=== PATIENT | female | born 1995 | race Caucasian/White ===

== ENCOUNTER 2016-08-24 20:24 | Inpatient (IN) | payer BC, OTHER ==
[~2016-08-24] VITALS: Ht 162.6 cm; Wt 84.4 kg
[~2016-08-24 20:24] MED LIST: BSP/10 PO; CGN5 PO; CHLO1TAB19 PO; CHLO1TAB38 PO; CLON0.5T3 PO; DROS1TAB21 PO; GLC/500 PO; LISD70CA PO; LMC25 PO
[2016-08-24] MEDS ORDERED: VNTHFA/IN INH (21:19)
[2016-08-24 21:20] LABS: URINE APPEARANCE CLEAR (CLEAR); URINE BILIRUBIN NEG (NEG); URINE COLOR YELLOW; URINE NITRITE NEG (NEG); URINE PH 6.5 (4.5-7.5); URINE SPECIFIC GRAVITY 1.012 (1.000-1.030); UROBILINOGEN NEG (NEG); ZZUR CULT IF INDIC CLEAN CATCH NO
[2016-08-24 21:25] LABS: MANUAL MICROSCOPIC REQUIRED? NO; REVIEW REQ? NO
[2016-08-24 21:42] LABS: BENZODIAZEPINE, URINE NEG (NEG); COCAINE,URINE NEG (NEG); PHENCYCLIDINE, URINE NEG (NEG)
[2016-08-24 22:15] LABS: BASO % 0.3 %; BASO ABS # 0.02 K/uL (0-0.2); COMPLETE YES; EOS % 5.4 %; HEMATOCRIT 40.8 % (37-47); IG% 0.1 %; LYMPH % 34.6 %; LYMPH ABS # 2.32 K/uL (1.2-3.4); MEAN CELL VOLUME 80.3 fL (80-100); MEAN CORPUSCULAR HEMOGLOBIN 26.4 pg (25-34); MEAN CORPUSCULAR HGB CONC 32.8 g/dl (32-36); MEAN PLATELET VOLUME 8.9 fL (7.4-10.4); MONO % 7.8 %; NEUT % 51.8 %; PLATELET COUNT 315 K/uL (130-400); RED BLOOD COUNT 5.08 M/uL (4.2-5.4)
--- NOTE | 2016-08-24 22:36 | EMERGENCY ROOM VISIT NOTE ---
History Report prepared by Vane: Carina Jackman Under the Supervision of: Dr. Radhames Church M.D. First contact with patient: 21:03 Chief Complaint: MENTAL HEALTH EVALUATION Stated Complaint: MENTAL HEALTH EVAL History of Present Illness The patient is a 21 year old female who presents to the Emergency Room for a mental health evaluation. The patient has a mental health history. Her diagnoses include possible bipolar, Asperger's, ADHD, and depression. The majority of the history is obtained from the patient's mother and older sister. They state that the patient thinks she is possessed and was asking her mother to call a soup person earlier [place]. She states that she is sensitive to paranormal energy and thinks that she has telekinesis. She thinks that [place] watches over her. His spirit tells her that he did not of an overdose, but that he was murdered and he wants her to find out who killed him. The patient states that black shadows attack her when she is sleeping and try to rape her, but [place] protects her and prevents anything from happening. She is barely sleeping and estimates that she gets less than 2 hours of sleep each night. Her mother states that this morning the patient kept asking her about and wanted to know what it felt like. Over the weekend she packed up a bunch of things into a box and said that it couldn't be in the house and it needed to be outside because it was too dangerous to stay in the house. Tonight the patient was screaming and yelling about spirits following her. She was scaring her younger brother and her mother is afraid to take her home because she thinks that "something would happen" and the patient would try and harm herself. The patient has had manic episodes like this in the past and went to [facility] at that time. She is not currently taking her medications. The patient states, "People are making me believe things. They are feeding me these things and they're making me freak out...I have a lot on my mind...I'm very manic right now. I'm aware that I need help." She denies any recent fevers but notes a slight cough. Source of History: patient, parent (mother), family (older sister) Onset: CONVERSION MAN Position: other (mental health) Quality: other (manic) Timing: worsening Modifying Factors (Worsening): other (medication noncompliance) Associated Symptoms: + cough, No fevers Review of Systems See HPI for pertinent positives & negatives. A total of 10 systems reviewed and were otherwise negative. Past Medical & Surgical Medical Problems: (1) ADHD (attention deficit hyperactivity disorder) (2) Asperger's disorder (3) Asthma (4) Constipation (5) Depression (6) History of acute bronchitis (7) ODD (oppositional defiant disorder) (8) URI (upper respiratory infection) Family History Cancer FHx: diabetes mellitus Heart disease Hypertension Kidney disease Kidney stones Seizures Social History Smoking Status: Never Smoker Alcohol Use: none Drug Use: none Marital Status: single Housing Status: lives with family Occupation Status: student Current/Historical Medications Scheduled Benztropine Mesylate (Benztropine Mesylate), 0.5 MG PO BID Buspirone HCl (Buspirone HCl), 20 MG PO BID Chlorpromazine Hcl (Thorazine), 25 MG PO QPM Chlorpromazine Hcl (Thorazine), 10 MG PO QAM Clonazepam (Klonopin), 0.5 MG PO BID Drospirenone-Ethinyl Estradiol (Gianvi), 1 TAB PO HS Lamotrigine (Lamotrigine), 50 MG PO BID Lisdexamfetamine Dimesylate (Vyvanse), 70 MG PO DAILY Metformin Hcl (Glucophage), 500 MG PO BID Scheduled PRN Albuterol Hfa (Ventolin Hfa), 2 PUFFS INH Q4 PRN for SOB/Wheezing Allergies Coded Allergies: Ibuprofen (Unverified Adverse Reaction, Unknown, CAN'T TAKE WITH VYVANSE, 08/24/16) Physical Exam Vital Signs Date Time Temp Pulse Resp B/P Pulse Ox O2 Delivery O2 Flow Rate FiO2 08/24/16 22:25 87 18 134/93 100 Room Air 08/24/16 20:30 36.9 105 16 143/81 98 Room Air Physical Exam GENERAL: Patient is a healthy-appearing well-nourished 21 year old female. HEAD: Normocephalic atraumatic EYES: Ocular movements intact pupils equal and react to light OROPHARYNX mucous membranes are moist no exudates present no erythema or edema present NECK: Supple no nuchal rigidity CHEST: Good equal expansion LUNGS: Clear and equal to auscultation CARDIAC: Normal S1 and S2 ABDOMEN: Soft nontender no guarding BACK: No CVA tenderness EXTREMITIES: No pain upon palpation normal muscle strength in all groups no clubbing cyanosis or edema NEURO: Patient is following commands is answering questions appropriately. Alert and oriented x3 Cranial Nerves 2-12 grossly intact Medical Decision & Procedures Laboratory Results 08/24/16 21:49 Red Blood Count 5.08, Mean Corpuscular Volume 80.3, Mean Corpuscular Hemoglobin 26.4, Mean Corpuscular Hemoglobin Concent 32.8, Mean Platelet Volume 8.9, Neutrophils (%) (Auto) 51.8, Lymphocytes (%) (Auto) 34.6, Monocytes (%) (Auto) 7.8, Eosinophils (%) (Auto) 5.4, Basophils (%) (Auto) 0.3, Neutrophils # (Auto) 3.47, Lymphocytes # (Auto) 2.32, Monocytes # (Auto) 0.52, Eosinophils # (Auto) 0.36, Basophils # (Auto) 0.02 08/24/16 21:49 Test 08/24/16 20:41 08/24/16 21:49 Urine Color YELLOW Urine Appearance CLEAR (CLEAR) Urine pH 6.5 (4.5-7.5) Urine Specific [place] 1.012 (1.000-1.030) Urine Protein NEG (NEG) Urine Glucose (UA) NEG (NEG) Urine Ketones NEG (NEG) Urine Occult Blood NEG (NEG) Urine Nitrite NEG (NEG) Urine Bilirubin NEG (NEG) Urine Urobilinogen NEG (NEG) Urine Leukocyte Esterase NEG (NEG) Urine Test NEG (NEG) Urine Opiates Screen NEG (NEG) Urine Methadone, Qualitative NEG (NEG) Urine Barbiturates NEG (NEG) Urine Phencyclidine (PCP) Level NEG (NEG) Ur Amphetamine/Methamphetamine POS (NEG) MDMA (Ecstasy) Screen NEG (NEG) Urine Benzodiazepines Screen NEG (NEG) Urine Cocaine Metabolite NEG (NEG) Urine Marijuana (THC) NEG (NEG) White Blood Count 6.70 K/uL (4.8-10.8) Red Blood Count 5.08 M/uL (4.2-5.4) Hemoglobin 13.4 g/dL (12.0-16.0) Hematocrit 40.8 % (37-47) Mean Corpuscular Volume 80.3 fL (80-100) Mean Corpuscular Hemoglobin 26.4 pg (25-34) Mean Corpuscular Hemoglobin Concent 32.8 g/dl (32-36) Platelet Count 315 K/uL (130-400) Mean Platelet Volume 8.9 fL (7.4-10.4) Neutrophils (%) (Auto) 51.8 % Lymphocytes (%) (Auto) 34.6 % Monocytes (%) (Auto) 7.8 % Eosinophils (%) (Auto) 5.4 % Basophils (%) (Auto) 0.3 % Neutrophils # (Auto) 3.47 K/uL (1.4-6.5) Lymphocytes # (Auto) 2.32 K/uL (1.2-3.4) Monocytes # (Auto) 0.52 K/uL (0.11-0.59) Eosinophils # (Auto) 0.36 K/uL (0-0.5) Basophils # (Auto) 0.02 K/uL (0-0.2) RDW Standard Deviation 40.8 fL (36.4-46.3) RDW Coefficient of Variation 13.9 % (11.5-14.5) Immature Granulocyte % (Auto) 0.1 % Immature Granulocyte # (Auto) 0.01 K/uL (0.00-0.02) Anion Gap 9.0 mmol/L (3-11) Est Creatinine Clear Calc Drug Dose 121.0 ml/min Estimated GFR () 126.8 Estimated GFR (Non- 109.4 BUN/Creatinine Ratio 9.6 (10-20) Calcium Level 9.6 mg/dl (8.5-10.1) Total Bilirubin 0.4 mg/dl (0.2-1) Aspartate Amino Transf (AST/SGOT) 25 U/L (15-37) Alanine Aminotransferase (ALT/SGPT) 24 U/L (12-78) Alkaline Phosphatase 85 U/L (45-117) Total Protein 7.6 gm/dl (6.4-8.2) Albumin 3.7 gm/dl (3.4-5.0) Globulin 3.9 gm/dl (2.5-4.0) Albumin/Globulin Ratio 0.9 (0.9-2) Thyroid Stimulating Hormone (TSH) 0.500 uIu/ml (0.300-4.500) Salicylates Level < 1.7 mg/dl (2.8-20) Acetaminophen Level < 2 ug/ml (10-30) Ethyl Alcohol mg/dL < 3.0 mg/dl (0-3) Labs reviewed by ED physician. ED Course 2129: Past medical records reviewed. The patient was evaluated in room A5. A complete history and physical examination was performed. 2314: The patient has been accepted to [facility] for further management. Medical Decision Differential diagnosis: Etiologies such as mood disorder, infection, hypoglycemia, electrolyte abnormalities, cardiac sources, intracerebral event, toxicologic, neurologic, as well as others were entertained. This is a 21-year-old female who presents emergency Department with manic thoughts and actions. The patient has not been taking her medication at home and has been sleeping maybe 2 hours tonight. She has become obsessed with [place]. I my examination of the patient she denies all these facts and feels that she should not be here. She did however willingly signed a 201 for admission to [facility]. I believe she is medically clear. Both patient and family were in agreement with the treatment plan. Impression Primary Impression: Mood disorder Scribe Attestation The scribe's documentation has been prepared under my direction and personally reviewed by me in its entirety. I confirm that the note above accurately reflects all work, treatment, procedures, and medical decision making performed by me. Departure Information Dispostion [facility] Acute Care Referrals Reva Ocasio M.D. (PCP) Patient Instructions My [facility]
[2016-08-24 22:38] LABS: ACETAMINOPHEN < 2 ug/ml (10-30); BUN/CREATININE RATIO 9.6 (10-20); CALCIUM 9.6 mg/dl (8.5-10.1); CREATININE 0.78 mg/dl (0.60-1.20); POTASSIUM 3.7 mmol/L (3.5-5.1)
[2016-08-24 22:48] LABS: ALB/GLOB RATIO 0.9 (0.9-2); THYROID STIMULATING HORMONE 0.5 uIu/ml (0.300-4.500)
[2016-08-24] MEDS ORDERED: NURSING VERBAL MED ORDER ONE (23:15)
[2016-08-24] MEDS ORDERED: MAGNESIUM HYDROXIDE SUSP 30 ML UDC PO PRN (23:30)
[2016-08-24] MEDS ORDERED: SODIUM CHLORIDE 0.65% NA SOLN 45 ML (OCEAN) PRN (23:30)
[2016-08-24] MEDS ORDERED: BISMUTH SUBSALICYLATE PER ML OMNICELL CHARGE PO PRN (23:30)
[2016-08-24] MEDS ORDERED: CHLORPROMAZINE HCL 25 MG TAB PO SCH (23:30)
[2016-08-24] MEDS ORDERED: ALUMINUM/MAGNESIUM SUSP 30 ML UDC PO PRN (23:30)
[2016-08-25 00:01] VITALS: BP 134/93; PULSE 87; TEMP 37.1; Ht 162.6 cm; Wt 84.4 kg
[2016-08-25 00:28] VITALS: O2SAT 99
[2016-08-25] MEDS: hydrOXYzine HCL 25 MG TAB PO PRN ×2 (01:02→23:03)
[2016-08-25 06:48] VITALS: BP_SYST 107; BP_SYST 122; BP_DIAS 71; BP_DIAS 84; PULSE 80; PULSE 87; TEMP 36.5
[2016-08-25] MEDS ORDERED: CHLORPROMAZINE HCL 25 MG TAB PO PRN (13:30)
[2016-08-25] MEDS ORDERED: CHLORPROMAZINE HCL 10 MG TAB PO ONE (14:00)
[2016-08-25] MEDS ORDERED: CLONAZEPAM 0.5 MG TAB PO ONE (14:30)
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
[2016-08-25] MEDS: CHLORPROMAZINE HCL 25 MG TAB PO SCH (21:19)
[2016-08-25] MEDS: METFORMIN HCL 500 MG TAB PO SCH (21:19)
[2016-08-25] MEDS: BENZTROPINE MESYLATE 0.5 MG TAB PO SCH (21:19)
[2016-08-25] MEDS: CLONAZEPAM 0.5 MG TAB PO SCH (21:19)
[2016-08-26 06:45] VITALS: BP_SYST 107; BP_SYST 120; BP_DIAS 75; BP_DIAS 79; PULSE 86; PULSE 90; TEMP 36.8
[2016-08-26] MEDS: ALBUTEROL HFA 8 GM INHALER INH PRN (07:09)
[2016-08-26] MEDS: BENZTROPINE MESYLATE 0.5 MG TAB PO SCH ×2 (08:31→21:03)
[2016-08-26] MEDS: METFORMIN HCL 500 MG TAB PO SCH ×2 (08:32→21:03)
[2016-08-26] MEDS: CHLORPROMAZINE HCL 10 MG TAB PO SCH (08:32)
[2016-08-26] MEDS: CLONAZEPAM 0.5 MG TAB PO SCH ×2 (08:32→21:02)
--- NOTE | 2016-08-26 11:42 | Psychiatric Progress Notes ---
Progress Note Date of Service Aug 26, 2016. Interval History 21 yo female admitted voluntarily on 08/25 with trang and psychosis, believing spirits were trying to rape her and she was protected by Florentin Bess, who wants her to find out who killed him. Chief Complaint "I'm tired!!". Subjective Patient was seen & assessed interval progress reviewed with Treatment Team. The patient has refused to get out of bed for groups today, saying that she is tired. She says that she slept well last night, but can't get up without her Vyvanse. She denies any experiences with spirits, but again believes that they exist only in her home. She is irritable and whining that she cannot get up, and refuses to go to group therapy. She denies SI/HI, denies aud/vis hallucinations. "Now leave me alone!" Review of Systems Constitutional: + fatigue ENT: No dental problems, No hearing loss, No nasal symptoms, No problem reported, No sore throat, No tinnitus, No trouble swallowing, No unusual epistaxis Respiratory: No cough, No dyspnea at rest, No dyspnea on exertion, No hemoptysis, No problem reported, No shortness of breath, No sputum, No wheezing Cardiovascular: No PND, No chest pain, No claudication, No edema, No orthopnea , No palpitations, No problem reported Abdomen: No GI bleeding, No constipation, No diarrhea, No nausea, No pain, No problem reported, No vomiting Musculoskeletal: No calf pain, No joint pain, No muscle pain, No problem reported, No swelling Neurologic: No balance problems, No memory loss, No numbness/tingling, No paralysis, No problem reported, No vertigo, No weakness Psychiatric: + problem reported (irritable) Integumentary: No bleeding, No color change, No itch, No new/changing skin lesions, No problem reported, No rash Sleep Information Total Hours of Sleep: 6.00 Meal Information Percent of Breakfast Consumed: 100 Percent of Lunch Consumed: 100 Percent of Dinner Consumed: 100 Mental Status Exam During interview pt is: uncooperative (refusing to get out of bed) Appearance: disheveled Eye contact is: other (none) Motor behavior is: steady gait & station (not observed today) Speech: other (irritable ) Affect: other (hides her face under blanket) Mood is: irritable Thought process: goal directed Thought content: delusions (that spirits live in her home and attempt to assault her) Suicidal thought are: denied Homicidal thoughts are: denied Hallucinations: denies auditory, denies visual Cognition: memory grossly intact, attention grossly intact, language grossly intact Intelligence estimated to be: average Insight: impaired Judgement: impaired Impression The patient is irritable today and refusing to participate in groups. She is denying overt hallucinations, and will only minimally participate in the interview regarding her delusions. 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 Input from case aide and mother indicates that she has been in deterioration for weeks or months, with poor sleep alternating with sleeping too much. For now will continue current meds but consider increasing thorazine if delusions persist. Continued Inpatient Care Requires inpatient care due to the severity of her condition and inability to manipulate information in a reality based way. Plan (1) Bipolar affective disorder, manic, severe, with psychotic behavior 08/26 - Continue home meds. 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 - Obtain OP records and coordinate aftercare - Family meetings scheduled for today - Reality orientation (2) Cannabis abuse 08/26 - Encourage abstinence (3) ADHD (attention deficit hyperactivity disorder) 08/26 - Will hold Vyvanse at present due to psychosis and trang Discharge / Aftercare Planning Primary Care Physician: Name: Dr Amarjit Brown [facility] Phone Number: [phone] Appointment Notes: as needed Psychiatrist: Name: Dr Cruz at [facility] Phone Number: [phone] Date of Appointment: Sep 08, 2016 Time of Appointment: 11:00 Therapist: Name: shae Bit Tapper: Name: Letty Brumfield at [facility] Phone Number: [phone] Appointment Notes: per weekly schedule Partial or Psych Rehab: Name: [facility] [phone] Visit Code E&M Code: 46957 Risk Factors Assessment : Yes /single/: Yes Higher / Fall in social status: No Access to guns: No Health problems: No Mental Health Diagnoses: Yes Substance use disorders: Yes Previous attempt: No Previous psychiatric stay: Yes Smoker: No Protective Factors Assessment Rastafari beliefs: No : No Responsible for young children: No Employed: No Stable relationships: Yes Supportive family: Yes Data Vital Signs Last 24 Hrs: Date Time Temp Pulse Resp B/P Pulse Ox O2 Delivery O2 Flow Rate FiO2 08/26/16 06:45 36.8 90 16 107/75 86 120/79 Meds Administered Last 24 Hrs: Meds Administered (Past 24Hrs) Medications (Trade) Dose Ordered Sig/Maria Teresa Route Start Time Stop Time Status Last Admin Dose Admin Hydroxyzine HCl (Vistaril Tab) 50 mg HSZ PRN PO 08/24/16 23:30 09/23/16 23:29 08/25/16 23:03 50 MG Chlorpromazine HCl (Thorazine Tab) 25 mg TODAY@2330 PO 08/24/16 23:30 08/24/16 23:59 DC 08/24/16 23:30 25 MG Albuterol (Ventolin Hfa Inhaler) 2 puffs Q4 PRN INH 08/25/16 13:30 09/24/16 13:29 08/26/16 07:09 2 PUFFS Benztropine Mesylate (Cogentin Tab) 0.5 mg BID PO 08/25/16 22:00 09/24/16 21:59 08/26/16 08:31 0.5 MG Chlorpromazine HCl (Thorazine Tab) 10 mg QAM PO 08/26/16 09:00 09/25/16 08:59 08/26/16 08:32 10 MG Chlorpromazine HCl (Thorazine Tab) 25 mg QPM PO 08/25/16 21:00 09/24/16 20:59 08/25/16 21:19 25 MG Clonazepam (Klonopin Tab) 0.5 mg BID PO 08/25/16 22:00 09/24/16 21:59 08/26/16 08:32 0.5 MG Lamotrigine (Lamictal Tab) 50 mg BID PO 08/25/16 22:00 09/24/16 21:59 08/26/16 08:32 50 MG Metformin HCl (Glucophage Tab) 500 mg BID PO 08/25/16 22:00 4/15/17 21:59 08/26/16 08:32 500 MG Chlorpromazine HCl (Thorazine Tab) 10 mg 1400 ONCE PO 08/25/16 14:00 08/25/16 14:01 DC 08/25/16 14:18 10 MG Clonazepam (Klonopin Tab) 0.5 mg 1430 ONCE PO 08/25/16 14:30 08/25/16 14:31 DC 08/25/16 14:18 0.5 MG Lamotrigine (Lamictal Tab) 50 mg 1430 ONCE PO 08/25/16 14:30 08/25/16 14:31 DC 08/25/16 14:30 50 MG Buspirone HCl (Buspar Tab) 20 mg BID PO 08/25/16 22:00 09/24/16 21:59 08/26/16 08:31 20 MG Lab Results Last 24 Hrs: 08/24/16 21:49 Red Blood Count 5.08, Mean Corpuscular Volume 80.3, Mean Corpuscular Hemoglobin 26.4, Mean Corpuscular Hemoglobin Concent 32.8, Mean Platelet Volume 8.9, Neutrophils (%) (Auto) 51.8, Lymphocytes (%) (Auto) 34.6, Monocytes (%) (Auto) 7.8, Eosinophils (%) (Auto) 5.4, Basophils (%) (Auto) 0.3, Neutrophils # (Auto) 3.47, Lymphocytes # (Auto) 2.32, Monocytes # (Auto) 0.52, Eosinophils # (Auto) 0.36, Basophils # (Auto) 0.02 08/24/16 21:49 Test 08/24/16 20:41 08/24/16 21:49 Urine Color YELLOW Urine Appearance CLEAR (CLEAR) Urine pH 6.5 (4.5-7.5) Urine Specific Garita 1.012 (1.000-1.030) Urine Protein NEG (NEG) Urine Glucose (UA) NEG (NEG) Urine Ketones NEG (NEG) Urine Occult Blood NEG (NEG) Urine Nitrite NEG (NEG) Urine Bilirubin NEG (NEG) Urine Urobilinogen NEG (NEG) Urine Leukocyte Esterase NEG (NEG) Urine Test NEG (NEG) Urine Opiates Screen NEG (NEG) Urine Methadone, Qualitative NEG (NEG) Urine Barbiturates NEG (NEG) Urine Phencyclidine (PCP) Level NEG (NEG) Ur Amphetamine/Methamphetamine POS (NEG) MDMA (Ecstasy) Screen NEG (NEG) Urine Benzodiazepines Screen NEG (NEG) Urine Cocaine Metabolite NEG (NEG) Urine Marijuana (THC) NEG (NEG) White Blood Count 6.70 K/uL (4.8-10.8) Red Blood Count 5.08 M/uL (4.2-5.4) Hemoglobin 13.4 g/dL (12.0-16.0) Hematocrit 40.8 % (37-47) Mean Corpuscular Volume 80.3 fL (80-100) Mean Corpuscular Hemoglobin 26.4 pg (25-34) Mean Corpuscular Hemoglobin Concent 32.8 g/dl (32-36) Platelet Count 315 K/uL (130-400) Mean Platelet Volume 8.9 fL (7.4-10.4) Neutrophils (%) (Auto) 51.8 % Lymphocytes (%) (Auto) 34.6 % Monocytes (%) (Auto) 7.8 % Eosinophils (%) (Auto) 5.4 % Basophils (%) (Auto) 0.3 % Neutrophils # (Auto) 3.47 K/uL (1.4-6.5) Lymphocytes # (Auto) 2.32 K/uL (1.2-3.4) Monocytes # (Auto) 0.52 K/uL (0.11-0.59) Eosinophils # (Auto) 0.36 K/uL (0-0.5) Basophils # (Auto) 0.02 K/uL (0-0.2) RDW Standard Deviation 40.8 fL (36.4-46.3) RDW Coefficient of Variation 13.9 % (11.5-14.5) Immature Granulocyte % (Auto) 0.1 % Immature Granulocyte # (Auto) 0.01 K/uL (0.00-0.02) Anion Gap 9.0 mmol/L (3-11) Est Creatinine Clear Calc Drug Dose 121.0 ml/min Estimated GFR () 126.8 Estimated GFR (Non- 109.4 BUN/Creatinine Ratio 9.6 (10-20) Calcium Level 9.6 mg/dl (8.5-10.1) Total Bilirubin 0.4 mg/dl (0.2-1) Aspartate Amino Transf (AST/SGOT) 25 U/L (15-37) Alanine Aminotransferase (ALT/SGPT) 24 U/L (12-78) Alkaline Phosphatase 85 U/L (45-117) Total Protein 7.6 gm/dl (6.4-8.2) Albumin 3.7 gm/dl (3.4-5.0) Globulin 3.9 gm/dl (2.5-4.0) Albumin/Globulin Ratio 0.9 (0.9-2) Thyroid Stimulating Hormone (TSH) 0.500 uIu/ml (0.300-4.500) Salicylates Level < 1.7 mg/dl (2.8-20) Acetaminophen Level < 2 ug/ml (10-30) Ethyl Alcohol mg/dL < 3.0 mg/dl (0-3)
[2016-08-26] MEDS: CHLORPROMAZINE HCL 25 MG TAB PO SCH (21:02)
[2016-08-27 06:57] VITALS: BP_SYST 102; BP_SYST 127; BP_DIAS 70; BP_DIAS 84; PULSE 101; PULSE 76; TEMP 36.8
[2016-08-27] MEDS: ALBUTEROL HFA 8 GM INHALER INH PRN (07:04)
[2016-08-27] MEDS: BENZTROPINE MESYLATE 0.5 MG TAB PO SCH ×2 (08:36→21:20)
[2016-08-27] MEDS: CHLORPROMAZINE HCL 10 MG TAB PO SCH (08:36)
[2016-08-27] MEDS: METFORMIN HCL 500 MG TAB PO SCH ×2 (08:36→21:21)
[2016-08-27] MEDS: CLONAZEPAM 0.5 MG TAB PO SCH ×2 (08:38→21:21)
--- NOTE | 2016-08-27 13:39 | Psychiatric Progress Notes ---
Progress Note Date of Service Aug 27, 2016. Interval History 21 yo female admitted voluntarily on 08/25 with trang and psychosis, believing spirits were trying to rape her and she was protected by Florentin Bess, who wants her to find out who killed him. Chief Complaint "Tired". Subjective Patient was seen & assessed interval progress reviewed with nursing staff. Patient reports feeling tired again today. She attributes this to being off Vyvanse. She is tolerating medications well. Less irritable. Denies any thoughts to harm herself or others. Denies auditory or visual hallucinations. No longer believes that she is possessed with spirits - which she attributes to smoking synthetic marijuana prior to admission. Review of Systems Constitutional: No chills, No fatigue, No fever, No problem reported, No sweats , No weakness, No weight loss ENT: No dental problems, No hearing loss, No nasal symptoms, No problem reported, No sore throat, No tinnitus, No trouble swallowing, No unusual epistaxis Respiratory: No cough, No dyspnea at rest, No dyspnea on exertion, No hemoptysis, No problem reported, No shortness of breath, No sputum, No wheezing Cardiovascular: No PND, No chest pain, No claudication, No edema, No orthopnea , No palpitations, No problem reported Abdomen: No GI bleeding, No constipation, No diarrhea, No nausea, No pain, No problem reported, No vomiting Musculoskeletal: No calf pain, No joint pain, No muscle pain, No problem reported, No swelling Integumentary: No bleeding, No color change, No itch, No new/changing skin lesions, No problem reported, No rash Sleep Information Total Hours of Sleep: 8.00 Meal Information Percent of Breakfast Consumed: 100 Percent of Lunch Consumed: 100 Percent of Dinner Consumed: 100 Mental Status Exam During interview pt is: uncooperative (refusing to get out of bed) Appearance: disheveled Eye contact is: other (none) Motor behavior is: steady gait & station (not observed today) Speech: other (irritable ) Affect: other (hides her face under blanket) Mood is: irritable Thought process: goal directed Thought content: delusions (that spirits live in her home and attempt to assault her) Suicidal thought are: denied Homicidal thoughts are: denied Hallucinations: denies auditory, denies visual Cognition: memory grossly intact, attention grossly intact, language grossly intact Intelligence estimated to be: average Insight: impaired Judgement: impaired Impression The patient is less irritable today and isolating in her room. She is denying overt hallucinations, and will only minimally participate in the interview regarding her delusions. 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 Input from egg caser and mother indicates that she has been in deterioration for weeks or months, with poor sleep alternating with sleeping too much. For now will continue current meds but consider increasing thorazine if delusions persist. Continued Inpatient Care Requires inpatient care due to the severity of her condition and inability to manipulate information in a reality based way. Plan (1) Bipolar affective disorder, manic, severe, with psychotic behavior 08/26 - Continue home meds. 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 - Obtain OP records and coordinate aftercare - Family meetings scheduled for today - Reality orientation (2) Cannabis abuse 08/26 - Encourage abstinence (3) ADHD (attention deficit hyperactivity disorder) 08/26 - Will hold Vyvanse at present due to psychosis and trang Discharge / Aftercare Planning Primary Care Physician: Name: Dr Amarjit Brown [facility] Phone Number: [phone] Appointment Notes: as needed Psychiatrist: Name: Dr Cruz at [facility] Phone Number: [phone] Date of Appointment: Sep 08, 2016 Time of Appointment: 11:00 [facility] Phone Number: [phone] Date of Appointment: Sep 14, 2016 Time of Appointment: 9:45 Appointment Notes: pending Link Knitting Machine Operator: Name: Letty Brumfield at [facility] Phone Number: [phone] Appointment Notes: per weekly schedule Partial or Psych Rehab: Name: [phone] Appointment Notes: per weekly schedule Visit Code E&M Code: 36797 Risk Factors Assessment : Yes /single/: Yes Higher / Fall in social status: No Access to guns: No Health problems: No Mental Health Diagnoses: Yes Substance use disorders: Yes Previous attempt: No Previous psychiatric stay: Yes Smoker: No Protective Factors Assessment Latter-Day beliefs: No : No Responsible for young children: No Employed: No Stable relationships: Yes Supportive family: Yes Data Vital Signs Last 24 Hrs: Date Time Temp Pulse Resp B/P Pulse Ox O2 Delivery O2 Flow Rate FiO2 08/27/16 06:57 36.8 76 16 102/70 101 127/84 Meds Administered Last 24 Hrs: Meds Administered (Past 24Hrs) Medications (Trade) Dose Ordered Sig/Maria Teresa Route Start Time Stop Time Status Last Admin Dose Admin Albuterol (Ventolin Hfa Inhaler) 2 puffs Q4 PRN INH 08/25/16 13:30 09/24/16 13:29 08/27/16 07:04 2 PUFFS Benztropine Mesylate (Cogentin Tab) 0.5 mg BID PO 08/25/16 22:00 09/24/16 21:59 08/27/16 08:36 0.5 MG Chlorpromazine HCl (Thorazine Tab) 10 mg QAM PO 08/26/16 09:00 09/25/16 08:59 08/27/16 08:36 10 MG Chlorpromazine HCl (Thorazine Tab) 25 mg QPM PO 08/25/16 21:00 09/24/16 20:59 08/26/16 21:02 25 MG Clonazepam (Klonopin Tab) 0.5 mg BID PO 08/25/16 22:00 09/24/16 21:59 08/27/16 08:38 0.5 MG Lamotrigine (Lamictal Tab) 50 mg BID PO 08/25/16 22:00 09/24/16 21:59 08/27/16 08:36 50 MG Metformin HCl (Glucophage Tab) 500 mg BID PO 08/25/16 22:00 09/24/16 21:59 08/27/16 08:36 500 MG Chlorpromazine HCl (Thorazine Tab) 10 mg 1400 ONCE PO 08/25/16 14:00 08/25/16 14:01 DC 08/25/16 14:18 10 MG Clonazepam (Klonopin Tab) 0.5 mg 1430 ONCE PO 08/25/16 14:30 08/25/16 14:31 DC 08/25/16 14:18 0.5 MG Lamotrigine (Lamictal Tab) 50 mg 1430 ONCE PO 08/25/16 14:30 08/25/16 14:31 DC 08/25/16 14:30 50 MG Buspirone HCl (Buspar Tab) 20 mg BID PO 08/25/16 22:00 09/24/16 21:59 08/27/16 08:36 20 MG
[2016-08-27] MEDS: CHLORPROMAZINE HCL 25 MG TAB PO SCH (21:19)
[2016-08-27] MEDS: hydrOXYzine HCL 25 MG TAB PO PRN (21:22)
[2016-08-28 06:38] VITALS: BP_SYST 105; BP_SYST 127; BP_DIAS 71; BP_DIAS 90; PULSE 82; PULSE 90; TEMP 36.6
[2016-08-28] MEDS: BENZTROPINE MESYLATE 0.5 MG TAB PO SCH ×2 (08:43→21:29)
[2016-08-28] MEDS: METFORMIN HCL 500 MG TAB PO SCH ×2 (08:43→21:29)
[2016-08-28] MEDS: CHLORPROMAZINE HCL 10 MG TAB PO SCH (08:46)
[2016-08-28] MEDS: CLONAZEPAM 0.5 MG TAB PO SCH ×2 (08:46→21:32)
--- NOTE | 2016-08-28 12:46 | Psychiatric Progress Notes ---
Progress Note Date of Service Aug 28, 2016. Interval History 21 yo female admitted voluntarily on 08/25 with trang and psychosis, believing spirits were trying to rape her and she was protected by Florentin Reva, who wants her to find out who killed him. Chief Complaint "Tired". Subjective Patient was seen & assessed interval progress reviewed with Treatment Team. Patient reports that she continues to feel tired and has being withdrawing into bed and she attributes this to coming off Vyvanse. She denies feeling depressed. Denies any thoughts to harm herself or others. Denies any auditory or visual hallucinations or paranoia. Tolerating medications well. Review of Systems Constitutional: No chills, No fatigue, No fever, No problem reported, No sweats , No weakness, No weight loss ENT: No dental problems, No hearing loss, No nasal symptoms, No problem reported, No sore throat, No tinnitus, No trouble swallowing, No unusual epistaxis Respiratory: No cough, No dyspnea at rest, No dyspnea on exertion, No hemoptysis, No problem reported, No shortness of breath, No sputum, No wheezing Cardiovascular: No PND, No chest pain, No claudication, No edema, No orthopnea , No palpitations, No problem reported Abdomen: No GI bleeding, No constipation, No diarrhea, No nausea, No pain, No problem reported, No vomiting Musculoskeletal: No calf pain, No joint pain, No muscle pain, No problem reported, No swelling Neurologic: No balance problems, No memory loss, No numbness/tingling, No paralysis, No problem reported, No vertigo, No weakness Integumentary: No bleeding, No color change, No itch, No new/changing skin lesions, No problem reported, No rash Sleep Information Total Hours of Sleep: 7.25 Meal Information Percent of Breakfast Consumed: 100 Percent of Lunch Consumed: 100 Percent of Dinner Consumed: 50 Mental Status Exam During interview pt is: cooperative Appearance: disheveled Eye contact is: fair Motor behavior is: no abnormal motor movements Speech: normal in rate, rhythm & volume Affect: mood congruent Mood is: irritable Thought process: goal directed Thought content: reality based without delusions Suicidal thought are: denied Homicidal thoughts are: denied Hallucinations: denies auditory, denies visual Cognition: memory grossly intact, attention grossly intact, language grossly intact Intelligence estimated to be: average Insight: fair Judgement: fair Impression The patient is less irritable today and isolating in her room. She is denying overt hallucinations, and will only minimally participate in the interview regarding her delusions. 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 Input from case preparer and liner and mother indicates that she has been in deterioration for weeks or months, with poor sleep alternating with sleeping too much. For now will continue current meds but consider increasing thorazine if delusions persist. Continued Inpatient Care Requires inpatient care due to the severity of her condition and inability to manipulate information in a reality based way. Plan (1) Bipolar affective disorder, manic, severe, with psychotic behavior 08/26 - Continue home meds. 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 - Obtain OP records and coordinate aftercare - Family meetings scheduled for today - Reality orientation (2) Cannabis abuse 08/26 - Encourage abstinence (3) ADHD (attention deficit hyperactivity disorder) 08/26 - Will hold Vyvanse at present due to psychosis and trang Discharge / Aftercare Planning Primary Care Physician: Name: Dr Amarjit Brown [facility] Phone Number: [phone] Appointment Notes: as needed Psychiatrist: Name: Dr Cruz at [facility] Phone Number: [phone] Date of Appointment: Sep 08, 2016 Time of Appointment: 11:00 [facility] Phone Number: [phone] Date of Appointment: Sep 14, 2016 Time of Appointment: 9:45 Appointment Notes: pending Block Cutter: Name: Letty Brumfield at [facility] Phone Number: [phone] Appointment Notes: per weekly schedule Partial or Psych Rehab: Name: [facility] [place] [phone] Appointment Notes: per weekly schedule Visit Code E&M Code: 95784 Risk Factors Assessment : Yes /single/: Yes Higher / Fall in social status: No Access to guns: No Health problems: No Mental Health Diagnoses: Yes Substance use disorders: Yes Previous attempt: No Previous psychiatric stay: Yes Smoker: No Protective Factors Assessment Anglican beliefs: No : No Responsible for young children: No Employed: No Stable relationships: Yes Supportive family: Yes Data Vital Signs Last 24 Hrs: Date Time Temp Pulse Resp B/P Pulse Ox O2 Delivery O2 Flow Rate FiO2 08/28/16 06:38 36.6 90 16 105/71 82 127/90
[2016-08-28] MEDS: hydrOXYzine HCL 25 MG TAB PO PRN ×2 (14:40→21:43)
[2016-08-28] MEDS: CHLORPROMAZINE HCL 25 MG TAB PO SCH (21:27)
[2016-08-29 06:51] VITALS: BP_SYST 102; BP_SYST 117; BP_DIAS 69; BP_DIAS 87; PULSE 77; PULSE 82; TEMP 36.6
[2016-08-29] MEDS: BENZTROPINE MESYLATE 0.5 MG TAB PO SCH ×2 (08:35→21:21)
[2016-08-29] MEDS: CLONAZEPAM 0.5 MG TAB PO SCH ×2 (08:35→21:21)
[2016-08-29] MEDS: CHLORPROMAZINE HCL 10 MG TAB PO SCH (08:35)
[2016-08-29] MEDS: METFORMIN HCL 500 MG TAB PO SCH ×2 (08:35→21:21)
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
[2016-08-29] MEDS: hydrOXYzine HCL 25 MG TAB PO PRN ×2 (16:21→21:21)
[2016-08-29] MEDS: ACETAMINOPHEN 325 MG TAB PO PRN (20:41)
[2016-08-29] MEDS: CHLORPROMAZINE HCL 25 MG TAB PO SCH (21:20)
[2016-08-30 06:57] VITALS: BP_SYST 107; BP_SYST 123; BP_DIAS 74; BP_DIAS 88; PULSE 78; PULSE 86; TEMP 36.8
[2016-08-30] MEDS: METFORMIN HCL 500 MG TAB PO SCH ×2 (08:42→21:15)
[2016-08-30] MEDS: BENZTROPINE MESYLATE 0.5 MG TAB PO SCH ×2 (08:42→21:15)
[2016-08-30] MEDS: CHLORPROMAZINE HCL 10 MG TAB PO SCH (08:43)
[2016-08-30] MEDS: CLONAZEPAM 0.5 MG TAB PO SCH ×2 (08:43→21:15)
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
[2016-08-30] MEDS: ACETAMINOPHEN 325 MG TAB PO PRN (10:30)
[2016-08-30] MEDS: CHLORPROMAZINE HCL 25 MG TAB PO SCH (21:15)
[2016-08-30] MEDS: hydrOXYzine HCL 25 MG TAB PO PRN (21:17)
[2016-08-31] MEDS: hydrOXYzine HCL 25 MG TAB PO PRN (02:33)
[2016-08-31] MEDS: ALBUTEROL HFA 8 GM INHALER INH PRN (02:33)
[2016-08-31 06:55] VITALS: BP_SYST 101; BP_SYST 120; BP_DIAS 67; BP_DIAS 83; PULSE 74; PULSE 76; TEMP 36.5
[2016-08-31] MEDS: METFORMIN HCL 500 MG TAB PO SCH (07:30)
[2016-08-31] MEDS: CLONAZEPAM 0.5 MG TAB PO SCH (07:30)
[2016-08-31] MEDS: BENZTROPINE MESYLATE 0.5 MG TAB PO SCH (07:30)
[2016-08-31] MEDS: CHLORPROMAZINE HCL 10 MG TAB PO SCH (07:31)
[2016-08-31 08:18] LABS: CHOLESTEROL/HDL RATIO 3.1
[2016-08-31] MEDS ORDERED: ATR25 PO (09:25)
--- NOTE | 2016-08-31 09:37 | Discharge Instructions ---
Discharge Information Report Includes Report will include the: Discharge Instructions & Summary Admission Admission Date / Time: Aug 24, 2016 at 23:11 Reason for Admission: Bipolar With Psychotic Features Discharge Discharge Diagnosis / Problem: Bipolar disorder with psychotic features Condition at Discharge: Fair Discharge Goals Goal(s): Decrease discomfort, Improve disease control, Prevent Disease Progression Activity Recommendations Activity Limitations: resume your previous activity . Instructions / Follow-Up Instructions / Follow-Up . SPECIAL CARE INSTRUCTIONS: 1. Follow through with your scheduled aftercare appointments. If unable to keep an appointment, please call to reschedule. 2. Take your medication only as prescribed. Medication should not be changed or stopped without the approval of your doctor. In the event of worsening symptoms or concerns about side effects, contact your doctor immediately. 3. Utilize new healthy coping skills, anger management skills, and stress management skills learned during your hospitalization. Journal feelings and process them with a support person. Identify stressors or situations that may result in relapse, deterioration or inappropriate behaviors and develop a plan to deal with those issues. 4. If your coping skills are ineffective and you are in crisis, contact your outpatient providers for direction. If unable to reach your providers, please call the CAN HELP LINE AT or go to the closest Emergency Room. 5. Avoid alcohol and un-prescribed drugs. 6. You have been provided with the Mental Health Advance Directives Pamphlet for your review. AFTERCARE APPOINTMENTS: * Please call your insurance company prior to your scheduled appointment to confirm your aftercare providers are covered. Take your insurance information to your appointments. . Discharge / Aftercare Planning Primary Care Physician: Name: Dr Amarjit Brown [facility] Phone Number: [phone] Appointment Notes: as needed Psychiatrist: Name: Dr Cruz at [facility] Phone Number: [phone] Date of Appointment: Sep 08, 2016 Time of Appointment: 11:00 [facility]rap[facility]: [facility] Number: [phone] Date of Appointment: Sep 14, 2016 Time of Appointment: 9:45 Appointment Comments: pending School Bus Inspector: Name: Letty Brumfield at [facility] Phone Number: [phone] Date of Appointment: Sep 01, 2016 Time of Appointment: 11:00 Appointment Notes: per weekly schedule Partial or Psych Rehab: Name: [phone] Appointment Comments: per weekly schedule Other: Name of Appointment #1: Piyush Barnes . Follow-Up Care Plan for Follow-Up Care: The patient will see her OP providers with 8 days of discharge. Current Hospital Diet Patient's current hospital diet: Regular Diet Discharge Diet Recommended Diet: Regular Diet Procedures Procedures Performed: No Pending Studies Pending Studies at Discharge: No Medical Emergencies . Who to Call and When: Medical Emergencies: For questions or emergencies related to your hospital stay, please contact the Inpatient Behavioral Health Unit at [phone]. A practice clinician is on-call 02/01 for the Behavioral Health Unit for emergencies At any time you feel your situation is an emergency, you may also call 911 immediately. . Non-Emergent Contact Non-Emergency issues call your: Psychiatrist, Therapist Advance Directives Existing Advance Directive: No Do You Have an Existing Mental: No Existing Living Will: No Existing Power of Hairspring Adjuster: No Advance Directives Info Given: To Pt/S.O. Discharge Summary Admission HPI Per the Admitting provider: Please see attached H&P Hospital Course (1) Bipolar affective disorder, manic, severe, with psychotic behavior 08/26 - Continue home meds. 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 - Obtain OP records and coordinate aftercare - Family meetings scheduled for today - Reality orientation 08/29 - Continue current meds - Meeting today with father and OP representatives 08/30 - Continue current meds, refer to [facility] [employer] for [facility]. - Working on plan to increase structure, earlier bedtime to be able to get up in time to take van to [facility]. (2) Cannabis abuse 08/26 - Encourage abstinence (3) ADHD (attention deficit hyperactivity disorder) 08/26 - Will hold Vyvanse at present due to psychosis and trang 08/30 - Patient states she feels better off Vyvanse, is calmer, will discontinue. Risk Factors Assessment : Yes /single/: Yes Higher / Fall in social status: No Access to guns: No Health problems: No Mental Health Diagnoses: Yes Substance use disorders: Yes Previous attempt: No Previous psychiatric stay: Yes Smoker: No Protective Factors Assessment Shinto beliefs: No : No Responsible for young children: No Employed: No Stable relationships: Yes Supportive family: Yes Day of Discharge Assessment COURSE OF HOSPITALIZATION: The patient was on our unit for 7 days. During that time via [place] was held due to concerns for psychosis. Her other home medications were continued at home dosing and when necessary Vistaril was used for sleep. Throughout her stay she was resistant to getting out of bed in the morning to participate in programming and this was complicated by the fact that she did not have via [place] to help wake her up. She presented as somewhat childlike/juvenile in her interactions and at times carrying her baby blanket from home with her. Her psychotic symptoms did lou and she ceased to talk about spirits that were attacking her and didn't not talk any further about the spirit of [place] protecting her. A large meeting of some of her outpatient providers as well as our providers occurred during her stay. Suggestions were given for increasing structure, and having more therapeutic contact as an outpatient, which the patient was amenable to. The patient's father was also involved in this meeting. Overall the patient felt calmer during her stay and felt that being without the via Mccormack was good in that sense. There was still some question whether or not the patient had consumed synthetic marijuana prior to admission on several occasions. She was encouraged to abstain from marijuana of any kind and other abusable substances. She denied auditory or visual hallucinations throughout her stay. DAY OF DISCHARGE ASSESSMENT: Today the patient is once again coming to the interview room with her baby blanket wrapped around her. She is alert and cooperative. She says that she is ready to go home and continues to deny suicidal, homicidal ideation or auditory visual hallucinations. She has worked on a safety plan which includes talking with her family and providers and returning to the emergency room in the event of decompensation. Today she is casually dressed, somewhat disheveled, wrapped in her baby blanket. Eye contact is minimal but appropriate. Gait and station are within normal limits. Affect is tired. Speech is minimal but of normal rate volume and tone. Thoughts are organized in response to questions, and without evidence of thought disorder. Recent and remote memory intact per conversation. Intelligence is estimated to be average or below. Insight and judgment are improved over admission. Laboratory 08/24/16 21:49 Red Blood Count 5.08, Mean Corpuscular Volume 80.3, Mean Corpuscular Hemoglobin 26.4, Mean Corpuscular Hemoglobin Concent 32.8, Mean Platelet Volume 8.9, Neutrophils (%) (Auto) 51.8, Lymphocytes (%) (Auto) 34.6, Monocytes (%) (Auto) 7.8, Eosinophils (%) (Auto) 5.4, Basophils (%) (Auto) 0.3, Neutrophils # (Auto) 3.47, Lymphocytes # (Auto) 2.32, Monocytes # (Auto) 0.52, Eosinophils # (Auto) 0.36, Basophils # (Auto) 0.02 08/24/16 21:49 Test 08/24/16 20:41 08/24/16 21:49 08/31/16 07:24 Urine Color YELLOW Urine Appearance CLEAR (CLEAR) Urine pH 6.5 (4.5-7.5) Urine Specific Willis 1.012 (1.000-1.030) Urine Protein NEG (NEG) Urine Glucose (UA) NEG (NEG) Urine Ketones NEG (NEG) Urine Occult Blood NEG (NEG) Urine Nitrite NEG (NEG) Urine Bilirubin NEG (NEG) Urine Urobilinogen NEG (NEG) Urine Leukocyte Esterase NEG (NEG) Urine Test NEG (NEG) Urine Opiates Screen NEG (NEG) Urine Methadone, Qualitative NEG (NEG) Urine Barbiturates NEG (NEG) Urine Phencyclidine (PCP) Level NEG (NEG) Urine Amphetamines Confirmation 8440 NG/ML (HUVCO=235) Ur Amphetamine/Methamphetamine POS (NEG) Urine Methamphetamine Confirmation NEGATIVE NG/ML (QDMPHT=930) MDMA (Ecstasy) Screen NEG (NEG) Urine Benzodiazepines Screen NEG (NEG) Urine Cocaine Metabolite NEG (NEG) Urine Marijuana (THC) NEG (NEG) White Blood Count 6.70 K/uL (4.8-10.8) Red Blood Count 5.08 M/uL (4.2-5.4) Hemoglobin 13.4 g/dL (12.0-16.0) Hematocrit 40.8 % (37-47) Mean Corpuscular Volume 80.3 fL (80-100) Mean Corpuscular Hemoglobin 26.4 pg (25-34) Mean Corpuscular Hemoglobin Concent 32.8 g/dl (32-36) Platelet Count 315 K/uL (130-400) Mean Platelet Volume 8.9 fL (7.4-10.4) Neutrophils (%) (Auto) 51.8 % Lymphocytes (%) (Auto) 34.6 % Monocytes (%) (Auto) 7.8 % Eosinophils (%) (Auto) 5.4 % Basophils (%) (Auto) 0.3 % Neutrophils # (Auto) 3.47 K/uL (1.4-6.5) Lymphocytes # (Auto) 2.32 K/uL (1.2-3.4) Monocytes # (Auto) 0.52 K/uL (0.11-0.59) Eosinophils # (Auto) 0.36 K/uL (0-0.5) Basophils # (Auto) 0.02 K/uL (0-0.2) RDW Standard Deviation 40.8 fL (36.4-46.3) RDW Coefficient of Variation 13.9 % (11.5-14.5) Immature Granulocyte % (Auto) 0.1 % Immature Granulocyte # (Auto) 0.01 K/uL (0.00-0.02) Anion Gap 9.0 mmol/L (3-11) Est Creatinine Clear Calc Drug Dose 121.0 ml/min Estimated GFR () 126.8 Estimated GFR (Non- 109.4 BUN/Creatinine Ratio 9.6 (10-20) Calcium Level 9.6 mg/dl (8.5-10.1) Total Bilirubin 0.4 mg/dl (0.2-1) Aspartate Amino Transf (AST/SGOT) 25 U/L (15-37) Alanine Aminotransferase (ALT/SGPT) 24 U/L (12-78) Alkaline Phosphatase 85 U/L (45-117) Total Protein 7.6 gm/dl (6.4-8.2) Albumin 3.7 gm/dl (3.4-5.0) Globulin 3.9 gm/dl (2.5-4.0) Albumin/Globulin Ratio 0.9 (0.9-2) Thyroid Stimulating Hormone (TSH) 0.500 uIu/ml (0.300-4.500) Salicylates Level < 1.7 mg/dl (2.8-20) Acetaminophen Level < 2 ug/ml (10-30) Lamotrigine (Lamictal) Level 2.1 mcg/mL (4.0-18.0) Ethyl Alcohol mg/dL < 3.0 mg/dl (0-3) Fasting Glucose 77 mg/dl (70-99) Triglycerides Level 99 mg/dl (0-150) Cholesterol Level 169 mg/dl (0-200) HDL Cholesterol 54 mg/dl LDL Cholesterol, Calculated 95 mg/dl VLDL Cholesterol, Calculated 20 mg/dl Cholesterol/HDL Ratio 3.1 Total Time Total Time Spent (min): Greater than 30 minutes Total Time Included: examination of the patient, discharge planning, medication reconciliation, communication with other providers Tobacco Cessation at Discharge FDA approved Prescription: patient refused (Patient reports only smoking cigarettes occasionally, socially)
== END 2016-08-31 17:50 | disposition home or self-care (01) | DRG 885 ==
LOC: C.EDB 20:25 → C.MHU 23:11
PROVIDERS: ADMIT Psychiatry & Neurology Psychiatry; ATTEND Psychiatry & Neurology Psychiatry
DX: F31.2 Bipolar disorder, current episode manic severe with psychotic features (principal); F90.9 Attention-deficit hyperactivity disorder, unspecified type; F84.5 Asperger's syndrome; F12.10 Cannabis abuse, uncomplicated; J45.909 Unspecified asthma, uncomplicated; Z79.84 Long term (current) use of oral hypoglycemic drugs; Z91.14 Patient's other noncompliance with medication regimen; Z79.3 Long term (current) use of hormonal contraceptives; Z79.899 Other long term (current) drug therapy; Z87.39 Personal history of other diseases of the musculoskeletal system and connective tissue

== ENCOUNTER 2016-11-29 22:32 | Emergency (ER) | payer BC, OTHER ==
[~2016-11-29] VITALS: Ht 162.6 cm; Wt 97.5 kg
[~2016-11-29 22:32] MED LIST changes: +ATR25 PO; +BENZ0.5T28 PO; -CGN5 PO; -LISD70CA PO; +VNTHFA/IN INH
[2016-11-29 22:51] VITALS: Ht 162.6 cm; Wt 97.5 kg
[2016-11-29] MEDS ORDERED: CLON0.5T3 PO (23:16)
--- NOTE | 2016-11-29 23:18 | EMERGENCY ROOM VISIT NOTE ---
History First contact with patient: 22:56 Chief Complaint: MEDICATION REFILL REQUEST Stated Complaint: ANXIETY History of Present Illness The patient is a 21 year old female who presents to the Emergency Room requesting a medication refill. The patient states that she has a history of anxiety. She states that she takes Klonopin, 0.5 mg twice daily. She reports that her pills fell down the sink today when her brother accidentally knocked them out of her hand. She has the remaining pills with her. She has 4 pills remaining and states she is not able to refill her prescription for 8 days. She states that she contacted her psychiatrist but they told her to come here. She does report feeling increased anxiety at this time. She has not taken her evening dose of Klonopin. Review of Systems A complete 10 point review of systems was reviewed with the patient with pertinent positives and negatives as per history of present illness. All else were negative. Past Medical/Surgical History Medical Problems: (1) ADHD (attention deficit hyperactivity disorder) (2) Asperger's disorder (3) Asthma (4) Cannabis abuse (5) Constipation (6) Depression (7) History of acute bronchitis (8) ODD (oppositional defiant disorder) (9) URI (upper respiratory infection) Family History Cancer FHx: diabetes mellitus Heart disease Hypertension Kidney disease Kidney stones Seizures Social History Smoking Status: Current Every Day Smoker Alcohol Use: none Drug Use: none Marital Status: single Housing Status: lives with family Occupation Status: student Current/Historical Medications Scheduled Benztropine Mesylate (Benztropine Mesylate), 0.5 MG PO BID Buspirone HCl (Buspirone HCl), 20 MG PO BID Chlorpromazine Hcl (Thorazine), 25 MG PO QPM Chlorpromazine Hcl (Thorazine), 10 MG PO QAM Clonazepam (Klonopin), 0.5 MG PO BID Drospirenone-Ethinyl Estradiol (Gianvi), 1 TAB PO HS Lamotrigine (Lamotrigine), 50 MG PO BID Metformin Hcl (Glucophage), 500 MG PO BID Scheduled PRN Albuterol Hfa (Ventolin Hfa), 2 PUFFS INH Q4 PRN for SOB/Wheezing Clonazepam (Klonopin), 1 TAB PO BID PRN for Anxiety Allergies Coded Allergies: Ibuprofen (Unverified Adverse Reaction, Unknown, CAN'T TAKE WITH VYVANSE, 11/29/16) Physical Exam Vital Signs Date Time Temp Pulse Resp B/P (MAP) Pulse Ox O2 Delivery O2 Flow Rate FiO2 11/29/16 23:28 36.8 109 18 136/94 97 11/29/16 22:51 36.8 109 18 136/94 97 Room Air Physical Exam VITALS: Vitals are noted on the nurse's note and reviewed by myself. Vital signs stable. GENERAL: This is a 21-year-old female, in no acute distress, nondiaphoretic, well-developed well-nourished. HEENT: Normocephalic. PERRLA. EOMI. Nares patent. Mucous membranes moist. Neck is supple without nuchal rigidity. HEART: Regular rate and rhythm without murmurs gallops or rubs. LUNGS: Clear to auscultation bilaterally without wheezes, rales or rhonchi. NEURO: Patient was alert and oriented to person place and time. Medical Decision & Procedures Medical Decision Differential diagnosis includes anxiety, drug-seeking behavior, among others. The patient was evaluated as above. She does present her bottle of Klonopin and she has 4 pills which appear to be broken. The [place] prescription drug monitoring program was reviewed. The patient has received prescriptions for Klonopin from her psychiatrist on a regular basis. She does not receive further prescriptions. I do think it is reasonable to provide her with a few days of Klonopin, but informed her that I will not be able to prescribe more than that and she will need to follow-up with her psychiatrist for any further medication refills. She was agreeable to this. She verbalized her understanding of my assessment and treatment plan and was discharged home in good condition. [place] Drug Monitoring Program Search Results: patient reviewed within database, no issues identified Impression Primary Impression: Encounter for medication refill Additional Impression: Anxiety Departure Information Dispostion Home / Self-Care Condition GOOD Prescriptions Clonazepam (KLONOPIN) 0.5 Mg Tab 1 TAB PO BID Y for Anxiety for 3 Days, #6 TAB Prov: Brittanie Wadsworth .BELEN 11/29/16 Referrals No Doctor, Assigned (PCP) Patient Instructions My [facility] Additional Instructions You will need to call your psychiatrist tomorrow for any further prescriptions. The emergency department is unable to provide you with these prescriptions in the future. Return for any worsening or new/concerning symptoms as needed. Problem Qualifiers
[2016-11-29 23:28] VITALS: BP 136/94; PULSE 109; TEMP 36.8; O2SAT 97
== END 2016-11-29 23:29 | disposition home or self-care (01) ==
LOC: C.EDB 22:33 → C.EDC 23:29
DX: Z76.0 Encounter for issue of repeat prescription (principal); F41.9 Anxiety disorder, unspecified; F90.9 Attention-deficit hyperactivity disorder, unspecified type; F84.5 Asperger's syndrome; F32.9 Major depressive disorder, single episode, unspecified; F91.3 Oppositional defiant disorder; F12.10 Cannabis abuse, uncomplicated; K59.00 Constipation, unspecified; F17.200 Nicotine dependence, unspecified, uncomplicated; Z79.84 Long term (current) use of oral hypoglycemic drugs; Z83.3 Family history of diabetes mellitus; Z82.49 Family history of ischemic heart disease and other diseases of the circulatory system; Z84.1 Family history of disorders of kidney and ureter; Z82.0 Family history of epilepsy and other diseases of the nervous system

== ENCOUNTER 2016-12-03 15:13 | Emergency (ER) | payer BC, OTHER ==
[~2016-12-03 15:13] MED LIST changes: -ATR25 PO
[2016-12-03 15:17] VITALS: TEMP 36.7
[2016-12-03] MEDS ORDERED: CLON0.5T3 PO ×2 (15:51→15:53)
[2016-12-03 16:13] VITALS: BP 120/72; PULSE 90; O2SAT 100
--- NOTE | 2016-12-04 16:59 | EMERGENCY ROOM VISIT NOTE ---
ED Visit Note First contact with patient: 15:29 Chief Complaint: Medication prescription refill request. History of Present Illness: Ms. Warren is a 21-year-old white female who ambulates into the ED accompanied by her mother and sister with a prescription refill request. Patient reports she has a history of severe anxiety. She is followed by a local psychiatrist and is prescribed 0.5 mg Klonopin 2 times a day. Patient reports 4-5 days ago her brother accidentally spilled her medication that was on the back of a sink and was not capped. She reports some of the medications went down the sink but others were able to be picked up some of the medications that were partially disintegrated and now are in a powder form. She attempted to contact her psychiatrist to replace these medications. They reported they would not replace these medications at that time but would not give a reason. She was seen in this ED 4 days ago and was given a prescription for 4 days of medication and encouraged to follow-up with her psychiatrist. She contacted her psychiatrist once again who reports that he would not refill her prescription but she was able to get an appointment for this coming Monday, 3 days from now. She also reports that the psychiatrist recommended her to take the powder remanence of her medication. Patient only complaint at this time is that she is feeling slightly anxious about running out of her medication over the weekend until her appointment on Monday. She is asking for an additional prescription for 3 days worth of her medication. Currently she reports she is slightly anxious but feeling fine. She denies any homicidal or suicidal ideation. She denies auditory or visual hallucinations. Review of Systems: As noted above in history of present illness. Past Medical History: As previously noted, attention deficit disorder, Asperger' s disorder, asthma, depression, bronchitis, oppositional defiant disorder, Current Medications: Albuterol, Glucophage, Thorazine, control, benztropine mesylate, Lamictal, buspirone, Allergies to Medications: Patient denies. Social History: Patient is currently employed; she feels safe in her home environment; she admits to tobacco use. Physical Examination: Vital Signs: Date Time Temp Pulse Resp B/P (MAP) Pulse Ox O2 Delivery O2 Flow Rate FiO2 12/03/16 16:13 90 17 120/72 100 12/03/16 15:17 36.7 96 18 123/75 95 Room Air GENERAL: 21-year-old female in no acute distress, nontoxic-appearing, afebrile and hemodynamically stable. NEUROLOGICAL: Awake, alert and oriented to person, place and time. Answering questions appropriately and following commands. Normal gait. Good hand eye coordination. PSYCHOLOGICAL: Patient is calm and does not appear agitated or manic. Her appearance is appropriate. Her hygiene is appropriate. She does not appear to be responding to any internal stimuli. There is no flight of ideas. She has good eye contact when answering questions. She denies homicidal or suicidal ideation. Thought process appears clear and not disorganized. ED Course: Patient is assessed as noted above. Patient's medication list was reviewed. I did check the state database for patient's medications; over the last year or does not appear to be any abuse of medications. Patient and family members were educated about today's findings and instructed on her treatment plan; they verbalizes understanding and agreement with this plan. Clinical Impression: Medication refill prescription request. Disposition: Patient discharged home in stable condition accompanied by her mother and sister; prior to departure she was reassessed and subjectively reported she was feeling fine. Plan: Patient was prescribed Klonopin 0.5 mg 2 times a day for 3 days. Patient was encouraged to keep her upcoming appointment with psychology in 3 days for reevaluation and continuance of her medication. Patient was encouraged return the ED for any homicidal or homicidal ideation or any new/concerning symptoms.
== END 2016-12-03 16:13 | disposition home or self-care (01) ==
LOC: C.EDB 15:14 → C.EDD 16:13
DX: Z76.0 Encounter for issue of repeat prescription (principal); J45.909 Unspecified asthma, uncomplicated; F41.9 Anxiety disorder, unspecified; F32.9 Major depressive disorder, single episode, unspecified; Z72.0 Tobacco use; Z79.899 Other long term (current) drug therapy

== ENCOUNTER → 2017-03-15 | Outpatient (CLI) | payer BC, OTHER ==
[~2017-03-15] MED LIST changes: -BENZ0.5T28 PO; +CGN5 PO
[2017-03-18 01:39] LABS: CHLAMYDIA TRACH RNA*** NOT DETECTED (NOT DETECTED); GC (NEIS GONORRHOEAE)RNA** NOT DETECTED (NOT DETECTED)
== END | disposition home or self-care (01) ==
LOC: C.LABSPEC 15:50
PROVIDERS: ATTEND Physician Assistant
DX: Z01.419 Encounter for gynecological examination (general) (routine) without abnormal findings (principal)